=== PATIENT | male | born 1950 | race Caucasian/White ===

== ENCOUNTER 2018-06-19 01:11 | Emergency (ER) | payer MEDICARE, OTHER ==
[2018-06-19 03:09] LABS: ABS Basophils 0.1 10^3/ul (0-0.2); ABS Eosinophils 0.2 10^3/ul (0-0.6); ABS Lymphocytes 0.8 10^3/ul (1.0-4.8); ABS Monocytes 0.6 10^3/ul (0-0.8); ABS Neutrophils 3.9 10^3/ul (1.5-7.7); ABS Nucleated RBC 0 10^3/ul; Eosinophil % 2.7 % (0-6); Hematocrit 36 % (42-52); Lymphocyte % 14.3 % (25-47); Mean Corpuscular HGB Conc 33 g/dl (31-36); Mean Corpuscular Hemoglobin 32 pg (27-31); Mean Corpuscular Volume 98 fL (80-94); Mean Platelet Volume 9.4 fL (7.4-10.4); Nucleated Red Blood Cells % 0.1; Platelet Count 112 10^3/ul (150-450); Red Blood Count 3.74 10^6/ul (4.00-5.40); Red Cell Distribution Width 18 % (10.5-15); White Blood Count 5.6 10^3/ul (3.5-10.8)
[2018-06-19 03:14] LABS: INR 3.8 (0.77-1.02)
[2018-06-19 03:26] LABS: BUN/Creatinine Ratio 20.6 (8-20); Calcium 9.7 mg/dL (8.6-10.3); EGFR Non-African American 76.7 (>60); Potassium 4.5 mmol/L (3.5-5.0)
[2018-06-19 03:46] VITALS: BP 107/70
--- NOTE | 2018-06-19 04:44 | ED ---
Head Injury - HPI Summary HPI Summary: This patient is a 68 year old M presenting to [facility] accompanied by his and daughter with a chief complaint of a laceration to the top of his head that he acquired around 0100 after tripping on blankets and hitting his head on a door. Pain is 7/10, upon triage. Patient denies LOC. Patient reports he is taking Coumadin for an artificial valve. - History Of Current Complaint Chief Complaint: EDHeadInjury Stated Complaint: FELL Time Seen by Provider: 06/19/18 03:07 Hx Obtained From: Patient Mechanism Of Injury: Fall From A Standing Position Onset/Duration: Started Hours Ago Onset of Pain: Immediate Pain Intensity: 7 Pain Scale Used: 0-10 Numeric Character: Other: - bleeding laceration Associated Signs And Symptoms: Negative Anticoagulant Therapy: Coumadin - Allergies/Home Medications Allergies/Adverse Reactions: Allergies Allergy/AdvReac Type Severity Reaction Status Date / Time tree nut Allergy Anaphylatic Verified 06/19/18 01:16 Shock PMH/Surg Hx/FS Hx/Imm Hx Cardiovascular History: Reports: Hx Valvular Heart Disease - artifical valve EENT History: Denies: Hx Deafness Infectious Disease History: No Infectious Disease History: Denies: Traveled Outside the [place] in Last 30 Days - Family History Known Family History: Negative: Diabetes - Social History Alcohol Use: Rare Substance Use Type: Reports: None Smoking Status (MU): Never Smoked Tobacco Review of Systems Positive: Other - laceration to top of head Positive: Headache All Other Systems Reviewed And Are Negative: Yes Physical Exam - Summary Physical Exam Summary: Appearance: Well-appearing, Well-nourished, lying in bed comfortable Skin: Warm, dry, no obvious rash Eyes: sclera anicteric, no conjunctival pallor ENT: mucous membranes moist Neck: deferred Respiratory: No signs of respiratory distress Cardiovascular: Appears well perfused, pulses are nml Abdomen: deferred Musculoskeletal: Moving all 4 extremities without obvious discomfort Neurological: Awake and alert, mentation is normal, speech is fluent and appropriate Psychiatric: affect is normal, does not appear anxious or depressed Triage Information Reviewed: Yes Vital Signs On Initial Exam: Initial Vitals Temp Pulse Resp BP Pulse Ox 98.4 F 103 16 127/90 96 06/19/18 01:13 06/19/18 01:13 06/19/18 01:13 06/19/18 01:13 06/19/18 01:13 Vital Signs Reviewed: Yes Procedures - Laceration/Wound Repair 1 Location: head Description: Linear Length, Depth and Shape: 8 cm, skull visible, linear Betadine Prep?: No - cleaned with soap and water Laceration/Wound Explored: clean Closure: Skin Adhesive, [place] #__ - 4 Diagnostics - Vital Signs Vital Signs Temp Pulse Resp BP Pulse Ox 06/19/18 03:45 98.4 F 89 20 107/70 95 06/19/18 01:13 98.4 F 103 16 127/90 96 - Laboratory Lab Results: Lab Results 06/19/18 06/19/18 06/19/18 Range/Units 03:01 03:01 03:01 WBC 5.6 (3.5-10.8) 10^3/ul RBC 3.74 L (4.00-5.40) 10^6/ul Hgb 12.0 L (14.0-18.0) g/dl Hct 36 L (42-52) % MCV 98 H (80-94) fL MCH 32 H (27-31) pg MCHC 33 (31-36) g/dl RDW 18 H (10.5-15) % Plt Count 112 L (150-450) 10^3/ul MPV 9.4 (7.4-10.4) fL Neut % (Auto) 71.1 (38-83) % Lymph % (Auto) 14.3 L (25-47) % [place] % (Auto) 10.9 H (0-7) % Eos % (Auto) 2.7 (0-6) % Baso % (Auto) 1.0 (0-2) % Absolute Neuts (auto) 3.9 (1.5-7.7) 10^3/ul Absolute Lymphs (auto) 0.8 L (1.0-4.8) 10^3/ul Absolute Monos (auto) 0.6 (0-0.8) 10^3/ul Absolute Eos (auto) 0.2 (0-0.6) 10^3/ul Absolute Basos (auto) 0.1 (0-0.2) 10^3/ul Absolute Nucleated RBC 0 10^3/ul Nucleated RBC % 0.1 INR (Anticoag Therapy) 3.80 H (0.77-1.02) Sodium 134 L (135-145) mmol/L Potassium 4.5 (3.5-5.0) mmol/L Chloride 101 (101-111) mmol/L Carbon Dioxide 27 (22-32) mmol/L Anion Gap 6 (2-11) mmol/L BUN 20 (6-24) mg/dL Creatinine 0.97 (0.67-1.17) mg/dL Est GFR ( Amer) 92.9 (>60) Est GFR (Non-Af Amer) 76.7 (>60) BUN/Creatinine Ratio 20.6 H (8-20) Glucose 161 H (70-100) mg/dL Calcium 9.7 (8.6-10.3) mg/dL Result Diagrams: 06/19/18 03:01 06/19/18 03:01 Lab Statement: Any lab studies that have been ordered have been reviewed, and results considered in the medical decision making process. - CT Brain CT CT Interpretation Completed By: Radiologist - Patient motion without definite acute intracranial abnormality. ED Physician has reviewed this report. Head Injury Course/Dx Course Of Treatment: 68 year old M presenting with a laceration to the top of his head that he acquired around 0100 after tripping on blankets and hitting his head on a door. Pain is 7/10, upon triage. Patient denies LOC. Patient reports he is taking Coumadin. Brain CT is unremarkable to intracranial pathology. Bloodwork reveals INR of 3.8, but is otherwise unremarkable. 8cm laceration to the top of head is cleaned and mostly repaired with skin adhesive however half of the wound was closed with four luz maria. Results discussed with patient. Patient is discharged and instructed to not take his coumadin on Wednesday06/19/18. - Diagnoses Provider Diagnoses: Scalp laceration, Warfarin-induced coagulopathy Discharge - Sign-Out/Discharge Documenting (check all that apply): Patient Departure - discharge - Discharge Plan Condition: Good Disposition: HOME Patient Education Materials: Skin Adhesive Care (ED), Staple Care (ED) Referrals: No Primary Care Phys,NOPCP [Primary Care Provider] - Additional Instructions: Hold your coumadin for Wednesday, check with your doctor on Wednesday for further instructions. Your INR tonight was 3.8. The luz maria will need to be removed in 10 days. - Billing Disposition and Condition Condition: GOOD Disposition: Home - Attestation Statements Document Initiated by Trayibaustin: Yes Documenting Scribe: Thao Acosta Provider For Whom Alexis is Documenting (Include Credential): Eric Hines MD Scribe Attestation: I, Thao Acosta, scribed for Eric Hines MD on 06/20/18 at 0036. Scribe Documentation Reviewed: Yes Provider Attestation: The documentation as recorded by the [email or web address] accurately reflects the service I personally performed and the decisions made by me, Eric Hines MD
== END 2018-06-19 03:45 | disposition home or self-care (01) ==
LOC: ED 01:11
DX: S01.01XA Laceration without foreign body of scalp, initial encounter (principal); W01.198A Fall on same level from slipping, tripping and stumbling with subsequent striking against other object, initial encounter; Y92.019 Unspecified place in single-family (private) house as the place of occurrence of the external cause; Z79.01 Long term (current) use of anticoagulants
CPT/HCPCS: 12004; 36415; 70450; 80048; 85025; 85610; 99282